=== PATIENT | male | born 1975 | race Caucasian/White ===

== ENCOUNTER 2017-09-02 11:41 | Emergency (ER) | payer BC ==
--- NOTE | 2017-09-02 12:02 | EDM.PDOC ---
ED HPI GENERAL MEDICAL PROBLEM - General Chief Complaint: Upper Extremity Injury/Pain Stated Complaint: FINGER SMASHED IN DOOR Time Seen by Provider: 09/02/17 11:43 Source of Information: Reports: Patient History Limitations: Reports: No Limitations - History of Present Illness INITIAL COMMENTS - FREE TEXT/NARRATIVE: Patient is a 42-year-old gentleman who presents to the emergency department this afternoon with a complaint of left middle finger injury. Patient states that he accidentally got left middle finger caught in a closing car door. Patient denies any other injury. Onset: Today Location: Reports: Upper Extremity, Left Quality: Reports: Ache Severity: Mild Improves with: Reports: None Worsens with: Reports: Movement Context: Reports: Trauma Associated Symptoms: Reports: No Other Symptoms - Related Data Home Meds: Home Meds Cephalexin [Keflex] 500 mg PO Q8H #21 cap 09/02/17 [Rx] Review of Systems - Review of Systems Review Of Systems: ROS reveals no pertinent complaints other than HPI. Constitutional: Reports: No Symptoms Eyes: Reports: No Symptoms Ears: Reports: No Symptoms Nose: Reports: No Symptoms Mouth/Throat: Reports: No Symptoms Respiratory: Reports: No Symptoms Cardiovascular: Reports: No Symptoms GI/Abdominal: Reports: No Symptoms Genitourinary: Reports: No Symptoms Musculoskeletal: Reports: Hand Pain (Left third digit) Skin: Reports: No Symptoms Neurological: Reports: No Symptoms Psychiatric: Reports: No Symptoms ED EXAM, GENERAL - Physical Exam Exam: See Below Exam Limited By: No Limitations General Appearance: Alert, WD/WN, No Apparent Distress Throat/Mouth: Normal Inspection, Normal Oropharynx, No Airway Compromise Head: Atraumatic, Normocephalic Respiratory/Chest: No Respiratory Distress Extremities: Other (Left third digit base of nail abrasion. No ungual hematoma , Yodit, nail avulsion, or tendon involvement noted.) Neurological: Alert, Oriented, Normal Cognition Psychiatric: Normal Affect, Normal Mood Skin Exam: Warm, Dry, Intact, Normal Color, No Rash Course - Orders/Labs/Meds Orders: Active Orders 24 hr Category Date Time Status Fingers Third Digit Lt F2 [CR] Stat Exams 09/02/17 11:48 Ordered - Radiology Interpretation Free Text/Narrative:: X-ray shows fracture of left third digit at distal phalanx - Re-Assessments/Exams Free Text/Narrative Re-Assessment/Exam: 09/02/17 12:14 Patient afebrile, nontoxic appearing, vital signs stable, finger splint applied and patient will follow-up with orthopedic next week Departure - Departure Time of Disposition: 12:15 Disposition: Home, Self-Care 01 Condition: Good Clinical Impression: Fracture, finger, distal phalanx Qualifiers: Encounter type: initial encounter Finger: middle finger Fracture type: closed Fracture alignment: displaced Laterality: left Qualified Code(s): S62.633A - Displaced fracture of distal phalanx of left middle finger, initial encounter for closed fracture - Discharge Information Instructions: Finger Fracture, [id number] Referrals: Bria Garza PA-C [Primary Care Provider] - Forms: ED Department Discharge Additional Instructions: Follow-up at [facility] in 1-2 days for orthopedic referral and recheck. Return to emergency department sooner if symptoms continue or worsen. - My Orders Last 24 Hours: My Active Orders 09/02/17 11:48 Fingers Third Digit Lt F2 [CR] Stat - Assessment/Plan Last 24 Hours: My Active Orders 09/02/17 11:48 Fingers Third Digit Lt F2 [CR] Stat Assessment:: Left middle finger fracture Plan: Follow-up at [facility] for orthopedic referral
== END 2017-09-02 12:45 | disposition home or self-care (01) ==
LOC: KA.ED 11:41
DX: S62.633A Displaced fracture of distal phalanx of left middle finger, initial encounter for closed fracture (principal); W23.1XXA Caught, crushed, jammed, or pinched between stationary objects, initial encounter
CPT/HCPCS: 73140-F2; 99283

== ENCOUNTER 2020-04-10 11:53 | Emergency (ER) | payer BC ==
[2020-04-10] MEDS ORDERED: Sodium Chloride 0.9% 10 ML Syringe FLUSH PRN (12:13)
--- NOTE | 2020-04-10 12:30 | EDM.PDOC ---
ED HPI GENERAL MEDICAL PROBLEM - General Chief Complaint: Syncope Stated Complaint: PASSED OUT TODAY Time Seen by Provider: 04/10/20 12:10 Source of Information: Reports: Patient History Limitations: Reports: No Limitations - History of Present Illness INITIAL COMMENTS - FREE TEXT/NARRATIVE: 45 YO WM PRESENTS TO ER COMPLAINING OF EPISODE OF SYNCOPE WHILE AT WORK TODAY. 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 PT REPORTS HE WAS ONLY UNCONSCIOUS FOR A FEW SECONDS PER [employer]. PT DENIES ANY CHEST PAIN, BEFORE OR AFTER EVENT, NO SHORTNESS OF BREATH. PT REPORTS DIAPHORESIS. PT DENIES HEADACHE OR NECK PAIN. PT DENIES ANY INJURY FROM EPISODE. PT DENIES FEVER/CHILLS, NO NAUSEA/VOMITING, NO URI SYMPTOMS OR KNOWN COVID EXPOSURES. PT OTHERWISE HEALTHY. 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 NO WATER TODAY OR LUNCH OF YET. PT ALERT AND ORIENTED X 4 AND IN NAD. Onset: Today Location: Reports: Generalized Severity: Mild Improves with: Reports: Rest Associated Symptoms: Reports: No Other Symptoms, Diaphoresis, Syncope. Denies: Confusion, Chest Pain, Cough, cough w sputum, Fever/Chills, Headaches, Nausea/Vomiting, Rash, Seizure, Shortness of Breath - Related Data Allergies Allergy/AdvReac Type Severity Reaction Status Date / Time No Known Drug Allergies Allergy Cannot Verified 09/02/17 15:38 Remember Home Meds: Home Meds . [No Known Home Meds] 04/10/20 [History] Social & Family History - Tobacco Use Tobacco Use Status *Q: Never Tobacco User - Caffeine Use Caffeine Use: Reports: Soda - Recreational Drug Use Recreational Drug Use: No ED ROS GENERAL - Review of Systems Review Of Systems: See Below Constitutional: Reports: Weakness HEENT: Reports: No Symptoms Respiratory: Reports: No Symptoms Cardiovascular: Reports: Lightheadedness, Syncope. Denies: Palpitations Endocrine: Reports: No Symptoms GI/Abdominal: Reports: No Symptoms : Reports: No Symptoms Musculoskeletal: Reports: No Symptoms Skin: Reports: No Symptoms Neurological: Reports: Dizziness, Syncope. Denies: Confusion, Headache, Numbness, Paresthesia, Pre-Existing Deficit, Seizure, Tingling, Tremors, Trouble Speaking, Difficulty Walking, Change in Speech, Gait Disturbance Psychiatric: Reports: No Symptoms Hematologic/Lymphatic: Reports: No Symptoms Immunologic: Reports: No Symptoms - Physical Exam Exam: See Below Exam Limited By: No Limitations General Appearance: Alert, WD/WN, No Apparent Distress Eye Exam: Bilateral Eye: EOMI, PERRL Head Exam: Atraumatic, Normocephalic Neck: Normal Inspection, Supple, Non-Tender, Full Range of Motion Respiratory/Chest: No Respiratory Distress, Lungs Clear, Normal Breath Sounds, No Accessory Muscle Use, Chest Non-Tender Cardiovascular: Normal Peripheral Pulses, Regular Rate, Rhythm, No Edema, No Gallop, No JVD, No Murmur, No Rub GI/Abdominal: Normal Bowel Sounds, Soft, Non-Tender, No Organomegaly, No Distention, No Abnormal Bruit, No Mass Neuro Exam (Abbreviated): Alert, Oriented, CN II-XII Intact, Normal Cognition, Normal Gait, Normal Reflexes, No Motor/Sensory Deficits Back Exam: Normal Inspection, Full Range of Motion, NT Extremities: Normal Inspection, Normal Range of Motion, Non-Tender, No Pedal Edema, Normal Capillary Refill Psychiatric: Normal Affect, Normal Mood Skin Exam: Warm, Dry, Intact, Normal Color, No Rash #1 Interpretation EKG Date: 04/10/20 Time: 12:04 Rhythm: NSR Rate (Beats/Min): 61 [place]: Normal P-Wave: Present QRS: Normal ST-T: Normal QT: Normal Comparison: NA - No Prior EKG Course - Vital Signs Last Recorded V/S: Last Vital Signs Temp 96.9 F 04/10/20 12:05 Pulse 66 04/10/20 13:01 Resp 16 04/10/20 13:01 BP 111/75 04/10/20 13:01 Pulse Ox 100 04/10/20 13:01 Orthostatic Blood Pressure [ 114/75 Standing] Orthostatic Blood Pressure [ 111/77 Sitting] Orthostatic Blood Pressure [ 104/72 Supine] - Orders/Labs/Meds Orders: Active Orders 24 hr Category Date Time Status EKG Documentation Completion [RC] ASDIRECTED Care 04/10/20 12:13 Active Orthostatic Vital Signs [RC] ASDIRECTED Care 04/10/20 12:16 Active Peripheral IV Care [RC] . DIRECTED Care 04/10/20 12:13 Active Sodium Chloride 0.9% [Normal Saline] 1,000 ml Med 04/10/20 12:17 Active IV .BOLUS Sodium Chloride 0.9% [Saline Flush] Med 04/10/20 12:13 Active 10 ml FLUSH Q8HR PRN Peripheral IV Insertion Adult [OM.PC] Routine Oth 04/10/20 12:13 Ordered EKG 12 Lead [EK] Stat Ther 04/10/20 12:13 Ordered Medication Orders Sodium Chloride (Normal Saline) 1,000 mls @ 999 mls/hr IV .BOLUS ONE Stop: 04/10/20 13:17 Last Admin: 04/10/20 12:48 Dose: 999 mls/hr Documented by: AZALIA Sodium Chloride (Saline Flush) 10 ml FLUSH Q8HR PRN PRN Reason: keep vein open Labs: Laboratory Tests 04/10/20 04/10/20 Range/Units 11:58 11:58 WBC 8.34 (5.00-10.00) 10^3/uL RBC 5.25 (4.50-6.00) 10^6/uL Hgb 15.3 (13.0-17.0) g/dL Hct 44.8 (40.0-52.0) % MCV 85.3 (82.0-92.0) fL MCH 29.1 (27.0-31.0) pg MCHC 34.2 (32.0-36.0) g/dL RDW 13.0 (11.5-14.5) % Plt Count 255 (150-400) 10^3/uL MPV 10.2 (7.4-10.4) fL Immature Gran % (Auto) 0.1 (0.0-5.0) % Neut % (Auto) 47.4 L (50.0-70.0) % Lymph % (Auto) 40.9 H (20.0-40.0) % Terry % (Auto) 7.6 (2.0-8.0) % Eos % (Auto) 3.5 H (1.0-3.0) % Baso % (Auto) 0.5 (0.0-1.0) % Neut # (Auto) 3.96 (2.50-7.00) 10^3/uL Lymph # (Auto) 3.41 (1.00-4.00) 10^3/uL Terry # (Auto) 0.63 (0.10-0.80) 10^3/uL Eos # (Auto) 0.29 (0.10-0.30) 10^3/uL Baso # (Auto) 0.04 (0.00-0.10) 10^3/uL Immature Gran # (Auto) 0.01 (0.00-0.50) 10^3/uL Sodium 137 (136-145) mmol/L Potassium 3.7 (3.5-5.1) mmol/L Chloride 103 (98-107) mmol/L Carbon Dioxide 24.6 (21.0-32.0) mmol/L Anion Gap 13.1 (5-15) mmol/L BUN 21 H (7-18) mg/dL Creatinine 1.16 (0.51-1.17) mg/dL Est Cr Clr Drug Dosing 88.27 mL/min Estimated GFR (MDRD) > 60 mL/min Glucose 97 (70-140) mg/dL Calcium 8.9 (8.7-10.3) mg/dL Total Bilirubin 0.5 (0.2-1.0) mg/dL AST 20 (15-37) U/L ALT 41 (14-63) U/L Alkaline Phosphatase 72 (46-116) U/L Creatine Kinase 99 (26-276) U/L CK-MB (CK-2) 1.10 (0.00-3.60) ng/mL Troponin I < 0.017 (0.000-0.056) ng/mL Total Protein 7.6 (6.4-8.2) g/dL Albumin 4.01 (3.40-5.00) g/dL Meds: Medications Generic Name Dose Route Start Last Admin Trade Name Freq PRN Reason Stop Dose Admin Sodium Chloride 1,000 mls @ 999 mls/hr 04/10/20 12:17 04/10/20 12:48 Normal Saline IV 04/10/20 13:17 999 mls/hr .BOLUS ONE Administration Sodium Chloride 10 ml 04/10/20 12:13 Saline Flush FLUSH Q8HR PRN keep vein open - Radiology Interpretation Free Text/Narrative:: CXR-NAD Departure - Departure Time of Disposition: 13:11 Disposition: Home, Self-Care 01 Condition: Good Clinical Impression: Syncope Qualifiers: Encounter type: initial encounter - Discharge Information Referrals: Bria Garza PA-C [Primary Care Provider] - Forms: ED Department Discharge Additional Instructions: 1. DISCHARGE HOME 2. DRINK MORE WATER 64OZ/DAY; CONSUME MORE CALORIES; REST AFTER EXERTION 3. FOLLOW UP WITH PCP FOR FURTHER EVALUATION AND TREATMENT 4. RETURN TO ER FOR WORSENING SYMPTOMS Sepsis Event Note (ED) - Evaluation Sepsis Screening Result: No Definite Risk - Focused Exam Vital Signs: Vital Signs Temp Pulse Resp BP Pulse Ox 04/10/20 13:01 66 16 111/75 100 04/10/20 12:15 59 L 17 103/73 95 04/10/20 12:05 96.9 F 69 17 112/77 95 04/10/20 12:00 64 20 108/74 95 - My Orders Last 24 Hours: My Active Orders 04/10/20 12:13 EKG Documentation Completion [RC] ASDIRECTED Peripheral IV Care [RC] . DIRECTED Sodium Chloride 0.9% [Saline Flush] 10 ml FLUSH Q8HR PRN Peripheral IV Insertion Adult [OM.PC] Routine EKG 12 Lead [EK] Stat 04/10/20 12:16 Orthostatic Vital Signs [RC] ASDIRECTED 04/10/20 12:17 Sodium Chloride 0.9% [Normal Saline] 1,000 ml IV .BOLUS - Assessment/Plan Last 24 Hours: My Active Orders 04/10/20 12:13 EKG Documentation Completion [RC] ASDIRECTED Peripheral IV Care [RC] . DIRECTED Sodium Chloride 0.9% [Saline Flush] 10 ml FLUSH Q8HR PRN Peripheral IV Insertion Adult [OM.PC] Routine EKG 12 Lead [EK] Stat 04/10/20 12:16 Orthostatic Vital Signs [RC] ASDIRECTED 04/10/20 12:17 Sodium Chloride 0.9% [Normal Saline] 1,000 ml IV .BOLUS Assessment:: 1. SYNCOPE Plan: 1. DISCHARGE HOME 2. DRINK MORE WATER 64OZ/DAY; CONSUME MORE CALORIES; REST AFTER EXERTION 3. FOLLOW UP WITH PCP FOR FURTHER EVALUATION AND TREATMENT 4. RETURN TO ER FOR WORSENING SYMPTOMS
[2020-04-10 12:44] LABS: ANION GAP 13.1 mmol/L (5-15); CHLORIDE,CL 103 mmol/L (98-107); SODIUM,NA 137 mmol/L (136-145)
[2020-04-10] MEDS: Sodium Chloride 0.9% 1,000 ML IV ONE (12:48)
--- NOTE | 2020-04-10 12:54 | CR ---
[id number] RAD/RAD Chest PA And Lateral EXAM: FRONTAL AND LATERAL CHEST INDICATION: SYNCOPE. COMPARISON: None. DISCUSSION: The heart and lungs are normal in appearance. IMPRESSION: 1. Negative exam. Kal Armas MD 04/10/20 [id number] Thank you for allowing us to participate in the care of your patient.
[2020-04-10 13:35] VITALS: BP 106/77; PULSE 55
== END 2020-04-10 13:50 | disposition home or self-care (01) ==
LOC: KA.ED 11:53
DX: R55 Syncope and collapse (principal)
CPT/HCPCS: 71046; 80053; 82550; 82553; 84484; 85025; 93005; 99284; 99284-25; J7030